=== PATIENT | female | born 1975 | race Caucasian/White ===

== ENCOUNTER 2018-01-06 19:31 | Emergency (ER) | payer OTHER ==
[2018-01-06 20:40] LABS: URINE HCG POC HCG NEGATIVE (Negative)
[2018-01-06] MEDS: NICOTINE POLACRILEX 2MG GUM PACKAGE of 12. BC (21:33)
== END 2018-01-06 22:00 | disposition home or self-care (01) ==
LOC: ER 19:31
DX: S00.83XA Contusion of other part of head, initial encounter (principal); M79.644 Pain in right finger(s); F12.10 Cannabis abuse, uncomplicated; F15.10 Other stimulant abuse, uncomplicated; Y04.0XXA Assault by unarmed brawl or fight, initial encounter; Y93.89 Activity, other specified; Y99.8 Other external cause status; Y92.89 Other specified places as the place of occurrence of the external cause
CPT/HCPCS: 70450; 73130; 81025; 99284-25